=== PATIENT | female | born 1975 | race Caucasian/White ===

== ENCOUNTER → 2016-04-23 | Outpatient (CLI) | payer BC ==
[~2016-04-23] MED LIST: LEVEMIR100 U/ML PO
== END ==
LOC: BHSO 09:52
DX: F33.0 Major depressive disorder, recurrent, mild (principal)

== ENCOUNTER → 2016-08-01 | Outpatient (CLI) | payer BC | LOC: BHSO 15:56 | DX: F41.1 Generalized anxiety disorder (principal) ==

== ENCOUNTER → 2016-10-23 | Outpatient (CLI) | payer BC | LOC: BHSO 10:59 | DX: F41.1 Generalized anxiety disorder (principal) ==

== ENCOUNTER → 2016-12-04 | Outpatient (CLI) | payer BC | LOC: BHSO 10:55 | DX: F41.1 Generalized anxiety disorder (principal) ==

== ENCOUNTER → 2017-02-05 | Outpatient (CLI) | payer BC | LOC: BHSO 10:56 | DX: F41.1 Generalized anxiety disorder (principal) ==

== ENCOUNTER → 2017-04-09 | Outpatient (CLI) | payer BC | LOC: BHSO 10:53 | DX: F41.1 Generalized anxiety disorder (principal) ==

== ENCOUNTER → 2017-06-04 | Outpatient (CLI) | payer BC | LOC: BHSO 10:56 | DX: F33.0 Major depressive disorder, recurrent, mild (principal) ==